=== PATIENT | female | born 2005 | race Caucasian/White ===

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

== ENCOUNTER 2023-04-03 15:29 | Outpatient (CLI) | payer OTHER, SELFPAY ==
[2023-04-03 20:37] LABS: Chlamydia DNA Amplified* NOT DETECTED (No Detected); GC DNA Amplified* NOT DETECTED (No Detected)
== END 2023-04-03 15:30 | disposition home or self-care (01) ==
PROVIDERS: PCP Family Medicine; Visit Provider Family Medicine
DX: Z11.3 Encounter for screening for infections with a predominantly sexual mode of transmission (principal)
CPT/HCPCS: 86592; 86703; 86803; 87340; 87491; 87591

== ENCOUNTER 2023-05-13 12:38 | Outpatient (CLI) | payer OTHER, SELFPAY ==
[2023-05-13 15:03] LABS: Chlamydia DNA Amplified* NOT DETECTED (No Detected); GC DNA Amplified* NOT DETECTED (No Detected)
== END 2023-05-13 12:39 | disposition home or self-care (01) ==
LOC: NFLDREF 12:39
PROVIDERS: PCP Family Medicine; Visit Provider Registered Nurse
DX: N89.8 Other specified noninflammatory disorders of vagina (principal)
CPT/HCPCS: 87491; 87591

== ENCOUNTER 2024-05-18 14:11 | Outpatient (CLI) | payer OTHER, SELFPAY ==
--- OUTSIDE RECORDS SUMMARY | 2024-05-18 14:14 | XMS_ITS | Clinical Summary ---
Author Organization [facility] Address [place], [place] [address] Care Team Providers Care Shook Machine Operator Name Role Phone [facility] [place] Primary Care Provider [phone] Allergies No known active allergies Medications Medication Sig Dispensed Refills Start Date End Date Status adapalene (DIFFERIN) 0.1 % cream Apply 0.1 pumps topically to affected area(s) at bedtime. 01/10/2022 Active minocycline (MINOCIN) 100 mg capsule Take 100 mg by mouth twice daily 12 hours apart. 06/19/2022 Active Immunizations Name Administration Dates Next Due DTaP 03/04/2005,01/02/2004 [id number] (Pediarix) 05/07/2004,03/05/2004 DTaP-IPV (Kinrix) 01/09/2009 HIB PRP-OMP (PedvaxHIB) 03/05/2004 HIB PRP-T (ActHIB,Hiberix) 05/07/2004 HIB-HepB (Comvax) 01/02/2004 HPV 9 (Gardasil 9) 07/06/2019,07/03/2016 Hepatitis A (Peds) 07/03/2016,01/09/2009 Hib Conjugate, Unspecified 03/04/2005 Inactivated Polio Vaccine 01/02/2004 Influenza A (H1N1), Inactivated 11/20/2009,10/20 Influenza Virus, Unspecified 08/29/2009 Influenza, IIV3 (Age >=3 years) 09/13/2004 Influenza, IIV4 01/03/2022, 0,09/25/2018,09/01,11/20/2009,10/20/2009 Influenza,LAIV3 Live Intrana isamar (Flumist) 10/29/2012,10/16/2011,10/29/2010,11/07 Influenza,LAIV4 Live Intrana isamar (Flumist) 11/15/2015,09/19/2014,08/30/2013 MMR 01/09/2009,11/14/2004 Meningococcal B 01/31/2022,01/03/2022 Meningococcal Vaccine (Menactra) 07/30/2021 Meningococcal Vaccine (Menveo) 07/03/2016 Pneumococcal conj 7-Valent (Prevnar 7) 4,03/05/2004,01/02/2004 Tdap 07/03/2016 Varicella Vaccine 01/09/2009,11/14/2004 Family History Medical History Relation Name Comments Asthma Father Good Health Father Good Health Mother Cancer-breast Paternal Grandmother Good Health Sister 1 Good Health Sister 2 Relation Name Status Comments Father Mother Paternal Grandmother Sister 1 Sister 2 Alive Social History Tobacco Use Types Packs/Day Years Used Date Smoking Tobacco: Never Smokeless Tobacco: Never Tobacco Cessation:Counseling Given: Yes Alcohol Use Standard Drinks/Week Comments Not Currently 0 (1 standard drink = 0.6 oz pur e alcohol) PHQ-2 Answer Date Recorded PHQ-2 TOTAL SCORE 0 06/20/2022 Social Connections Answer Date Recorded Frequency of Communication with Friends and Fami ly Not on file 06/20/2022 Sex and Gender Information Value Date Recorded Sex Assigned at Not on file Gender Identity Not on file Sexual Orientation Not on file Obstetrics History Last Filed Vital Signs Vital Sign Reading Time Taken Comments Blood Pressure 116/79 06/20/2022 3:25 PM CDT Pulse 82 06/20/2022 3:25 PM CDT Temperature 36.4 ??C (97.6 ??F) 04/29/2009 11:14 AM C DT Respiratory Rate - - Oxygen Saturation 98% 06/20/2022 3:25 PM CDT Inhaled Oxygen Concentration - - Weight 58.8 kg (129 lb 9.6 oz) 06/20/2022 3:25 P M CDT Height 174.6 cm (5' 8.74) 06/20/2022 3:25 PM CD T Body Mass Index 19.28 06/20/2022 3:25 PM CDT Plan of Treatment Health Maintenance Due Date Last Done Comments Well Child Check for age 3-20 09/29/2006 HIV for age 15-65 2018 Chlamydia for age 16-24 2019 Hepatitis C screening for age 18-79 2021 BMI (ht and wt on same day) for age 18+ 06/20/2023 06/20/2022 Depression screening for age 12+ 06/20/2023 06/20/2022 COVID-19 vaccine series ( season) 2023 11/13/2021, 03/17/2021, 02/24/2021 Influenza for age 9-49 08/01/2024 , 10/25/2020, 09/25/2018, Additional history exists Tetanus booster 07/03/2026 07/03/2016 Pneumococcal series for age 6-64 Aged Out 08/23/2004, 03/05/2004, 01/02/2004 No longer eligible based on patient's age to complete this topic Tdap Completed 07/03/2016 HPV series for age 9-26 Completed 07/06/2019, 07/03 Meningococcal series for age 11-21 Completed 07/30/2021, 07/03/2016 Care Teams Shook Machine Operator Relationship Specialty Start Date End Date [facility] [address] [place] [address] PCP - General 04/29/09
[2024-05-18 18:03] LABS: Chlamydia DNA Amplified* NOT DETECTED (No Detected); GC DNA Amplified* NOT DETECTED (No Detected)
== END 2024-05-18 14:12 | disposition home or self-care (01) ==
LOC: NFLDREF 14:12
PROVIDERS: PCP Family Medicine; Visit Provider Registered Nurse
DX: Z11.3 Encounter for screening for infections with a predominantly sexual mode of transmission (principal)
CPT/HCPCS: 87491; 87591

== ENCOUNTER 2024-07-14 14:02 | Outpatient (CLI) | payer OTHER, SELFPAY ==
--- OUTSIDE RECORDS SUMMARY | 2024-07-14 14:07 | XMS_ITS | Clinical Summary ---
Author Organization [facility] Address [place], [place] [address] Care Team Providers Care Ornamental Iron Worker Name Role Phone Clinic, [facility] Primary Care Pr ovider Allergies No known active allergies Medications Medication Sig Dispensed Refills Start Date End Date Status adapalene (DIFFERIN) 0.1 % cream Apply 0.1 pumps topically to affected area(s) at bedtime. 01/10/2022 Active minocycline (MINOCIN) 100 mg capsule Take 100 mg by mouth twice daily 12 hours apart. 06/19/2022 Active Immunizations Name Administration Dates Next Due DTaP 03/04/2005,01/02/2004 [id number] (Pediarix) 05/07/2004,03/05/2004 DTaP-IPV (Kinrix) 01/09/2009 HIB PRP-OMP [...] age 11-21 Completed 07/30/2021, 07/03/2016 Care Teams Ornamental Iron Worker Relationship Specialty Start Date End Date Clinic, [facility] [address] [place] [address] PCP - General 04/29/09
== END 2024-07-14 14:03 | disposition home or self-care (01) ==
LOC: NFLDREF 14:03
PROVIDERS: PCP Family Medicine; Visit Provider Family Medicine
DX: B35.1 Tinea unguium (principal); Z79.899 Other long term (current) drug therapy
CPT/HCPCS: 80053

== ENCOUNTER 2024-12-06 18:40 | Outpatient (REF) | payer OTHER, SELFPAY ==
[2024-12-06 19:19] LABS: Ur HCG Qualitative* Negative (Negative)
== END 2024-12-06 18:41 | disposition home or self-care (01) ==
LOC: NPINS 18:40
PROVIDERS: PCP Family Medicine; Visit Provider Specialist
DX: L70.0 Acne vulgaris (principal)
CPT/HCPCS: 81025

== ENCOUNTER 2025-04-12 12:41 | Outpatient (CLI) | payer OTHER, SELFPAY ==
[2025-04-12 13:31] LABS: Albumin* 4.1 g/dL (3.3-5.0)
[2025-04-12 13:33] LABS: Cholesterol* 151 mg/dL (90-199)
[2025-04-12 13:34] LABS: Alanine Aminotransferase* 26 U/L (4-35); Alkaline Phosphatase* 63 U/L (40-150); Aspartate Amino Transferase* 31 U/L (12-35); Bilirubin Direct* 0.3 mg/dL (0.0-0.5); Bilirubin Total* 0.7 mg/dL (0.1-1.5); HDL Cholesterol* 54 mg/dL (>=50); LDL Cholesterol Calculated 72 mg/dL (<100); Total Protein* 6.6 g/dL (6.0-8.3); Triglycerides* 126 mg/dL (40-149)
== END 2025-04-12 12:42 | disposition home or self-care (01) ==
PROVIDERS: PCP Family Medicine; Visit Provider Specialist
DX: L70.0 Acne vulgaris (principal)
CPT/HCPCS: 36415; 80061; 80076